=== PATIENT | male | born 1990 | race Two or more races ===

== ENCOUNTER 2018-04-17 20:32 | Emergency (ER) | payer SELFPAY ==
[~2018-04-17] VITALS: Ht 172.7 cm; Wt 72.6 kg
--- NOTE | 2018-04-17 20:50 | NUR ---
PT BROUGHT INTO ROOM 3A AFTER CALLED ARTURO HORN IN WAITING ROOM. PT IS COMBATIVE AND THREATENING STAFF MEMBERS WITH VERBAL INAPPROPRIATE STATEMENTS. PT PUT ON 4 HOLD RESTRAINTS PER MD ORDER. PT CHIEF COMPLAINT IS TESTICLE PAIN. PT IS SCREAMING AT STAFF MEMBERS STATING "GIVE ME MY MEDICATIONS!" ER MD AT BEDSIDE AT THIS TIME.
[2018-04-17] MEDS ORDERED: OLANZAPINE 10 MG VIAL IM ONE ×2 (20:53→21:30)
[2018-04-17] MEDS ORDERED: diphenhydrAMINE 50 MG/1 ML VIAL ONE (20:53)
[2018-04-17] MEDS ORDERED: LORAZEPAM 2 MG/1 ML VIAL ONE (20:54)
[2018-04-17] MEDS ORDERED: LORAZEPAM 2 MG/1 ML VIAL IM ONE (21:00)
[2018-04-17 21:22] LABS: BASOPHILS % (AUTO) 0.5 % (0.0-2.0); EOSINOPHILS # (AUTO) 0.1 K/uL (0.0-0.7); EOSINOPHILS % (AUTO) 0.7 % (0.0-7.0); HEMATOCRIT 43.2 % (36.7-47.1); LYMPHOCYTES # (AUTO) 3.5 K/uL (20.0-40.0); MEAN CORPUSCULAR HEMOGLOBIN 31.5 uug (23.8-33.4); MEAN CORPUSCULAR HGB CONC 35 g/dL (32.5-36.3); MEAN CORPUSCULAR VOLUME 90.9 fL (73.0-96.2); MONOCYTES # (AUTO) 0.5 K/uL (2.0-10.0); MONOCYTES % (AUTO) 4.9 % (0.0-11.0); NEUTROPHILS # (AUTO) 6.5 K/uL (1.8-8.9); NEUTROPHILS % (AUTO) 60.9 % (38.5-71.5); PLATELET COUNT (AUTO) 300 K/uL (152-348); RED BLOOD CELL COUNT(AUTO) 4.75 MIL/uL (4.06-5.63); WHITE BLOOD COUNT (AUTO) 10.6 K/uL (3.6-10.2)
[2018-04-17 21:30] LABS: CARBON DIOXIDE 25 mmol/L (21-32); CHLORIDE 105 mmol/L (98-107); CREATININE 1.2 mg/dL (0.6-1.3); GLUCOSE 97 mg/dL (74-106); UREA NITROGEN, BLOOD 17 mg/dL (7-18)
[2018-04-17] MEDS ORDERED: diphenhydrAMINE 50 MG/1 ML VIAL IM ONE (21:30)
[2018-04-17 21:35] LABS: ALANINE AMINOTRANSFERASE 27 U/L (16-63); ALKALINE PHOSPHATASE 65 U/L (50-136); ASPARTATE AMINOTRANSFERASE 24 U/L (15-37); BILIRUBIN,DIRECT 0.2 mg/dL (0.0-0.2); BILIRUBIN,TOTAL 0.5 mg/dL (0.2-1.0); TOTAL PROTEIN, SERUM 7.9 g/dL (6.4-8.2)
[2018-04-17 21:36] LABS: ETHANOL < 3 MG/DL (0-0)
[2018-04-17 21:37] LABS: ACETAMINOPHEN < 2.0 ug/mL (10-30); VALPROIC ACID < 3 ug/mL (50-100)
[2018-04-17 21:39] LABS: PHENYTOIN (DILANTIN) 0.8 ug/mL (10.0-20.0)
--- NOTE | 2018-04-17 21:42 | NUR ---
ULTRASOUND AT BEDSIDE AT THIS TIME
[2018-04-17 21:47] LABS: THYROID STIMULATING HORMONE 0.903 mIU/mL (0.358-3.740)
--- NOTE | 2018-04-17 22:13 | NUR ---
PATIENT IS AWAKE, ALERT AND ORINTED. STATES HAS H/O SEIZURES. NKA, TAKES KEPPRA 3 TABS BID AND VIMPAT 1 TAB BID. DOES NOT KNOW DOSAGES.
[2018-04-17 22:19] LABS: *AMPHETAMINE, URINE NEGATIVE (NEGATIVE); *BARBITURATE, URINE NEGATIVE (NEGATIVE); *CANNABINOID, URINE POSITIVE (NEGATIVE); *COCCAINE, URINE NEGATIVE (NEGATIVE); *OPIATE, URINE NEGATIVE (NEGATIVE); *PHENCYCLIDINE SCREEN,URINE NEGATIVE (NEGATIVE)
[2018-04-17 22:21] LABS: *BILIRUBIN,URIN NEGATIVE (NEGATIVE); *BLOOD, URINE NEGATIVE (NEGATIVE); *CLARITY,URINE CLEAR (CLEAR); *COLOR,URINE YELLOW (YELLOW); *KETONES,URINE NEGATIVE (NEGATIVE); *PROTEIN,URINE NEGATIVE (NEGATIVE); LEUKOCYTE ESTERASE ,URINE NEGATIVE (NEGATIVE); NITRITE, URINE NEGATIVE (NEGATIVE); PH,URINE 7.5 (5.0-8.0); UGLUCOSE NEGATIVE (NEGATIVE)
--- NOTE | 2018-04-17 22:29 | NUR ---
PATIENT STATES HAD HEAD TRAUMA AT AGE 17 AND HAD SEIZURES SINCE THEN.
[2018-04-17 22:31] LABS: MUCUS,URINE FEW /LPF (0-FEW); RBC,URINE 0-3 /HPF (0-3); WBC,URINE NONE SEEN /HPF (0-3)
--- NOTE | 2018-04-17 22:34 | NUR ---
PT IS OFF THE 4 PT RESTRAINTS. SKIN INTACT. NO ACUTE DISTRESS NOTED. PT IS CALM & COOPERATIVE AT THIS TIME.
--- NOTE | 2018-04-17 23:30 | NUR ---
PT RESTING COMFORTABLY IN BED WITH EYES CLOSED. NO ACUTE DISTRESS NOTED. VSS. AWAITING RESULTS OF CT ABDOMEN/PELVIS.
[2018-04-18] MEDS ORDERED: LEVETIRACETAM 250 MG TABLET PO ONE (00:30)
[2018-04-18] MEDS ORDERED: LEVETIRACETAM 250 MG TABLET ONE (00:36)
--- NOTE | 2018-04-18 00:41 | NUR ---
AFTERCARE INSTRUCTIONS PROVIDED PER MD. PT ABLE TO BE DISCHARGED ONCE PT IS SOBER & WALKS IN STEADY GAIT.
--- NOTE | 2018-04-18 02:56 | NUR ---
PT IS AWAKE, ALERT, & ORIENTED. ABLE TO WALK IN STEADY GAIT. PT REQUESTED TAXI VOUCHER.
--- NOTE | 2018-04-18 03:00 | NUR ---
IV removed. Catheter intact and site benign. Pressure and 4x4 gauze applied to site. No bleeding noted.
--- NOTE | 2018-04-18 03:09 | NUR ---
PT LEFT ER IN STEADY GAIT WITH TAXI NUMBER [id number]. VSS. NO ACUTE DISTRESS NOTED. ALL BELONGINGS WITH PT.
[2018-04-18 03:11] VITALS: BP 114/68
== END 2018-04-18 03:12 | disposition home or self-care (01) ==
LOC: ER 20:35
DX: R56.9 Unspecified convulsions (principal); R10.9 Unspecified abdominal pain; R41.0 Disorientation, unspecified
CPT/HCPCS: 36415; 71045; 74176; 76870; 80048; 80076; 80164; 80185; 80307; 81001; 82550; 84443; 85025; 85730; 93005; 96372 ×3; 99285; A4663; G0480 ×2; G0481; J1200; J2060; J2358